=== PATIENT | male | born 1945 | race Caucasian/White ===

== ENCOUNTER 2017-03-30 18:08 | Observation (INO) ==
--- NOTE | 2017-03-30 20:13 | Internal Med History&Physical ---
Date of Encounter: 03/31/17 Time of Encounter: 20:07 Assessment and Plan (1) Atrial flutter Current visit: No Status: Acute Patient has history of atrial flutter, not on any treatment control medications for anticoagulation. Follows with Dr. Simeon with cardiology. Was started on Cardizem drip at [facility], converted back to sinus rhythm before the transfer. Currently heart rate at 70s and blood pressure 90s over 60s.(he says his BP normally stays at 90s/60s) Cardizem drip has been stopped. Will consult cardiology for further management. Continuous telemetry monitoring. Qualifiers: Atrial flutter type: unspecified Qualified Code(s): I48.92 - Unspecified atrial flutter (2) COPD (chronic obstructive pulmonary disease) Current visit: Yes Status: Acute Not in exacerbation. Will continue breathing treatments as required. Not on home oxygen. Qualifiers: COPD type: emphysema Emphysema type: unspecified Qualified Code(s): J43.9 - Emphysema, unspecified (3) Diabetes Current visit: Yes Status: Acute Monitor fingersticks. Insulin sliding scale Qualifiers: Qualified Code(s): E11.9 - Type 2 diabetes mellitus without complications (4) CAD (coronary artery disease) Current visit: No Status: Acute 06/05/16 , had LHC secondary to angina at rest and abnormal stress test. He is s/p successful PTCA/SUSANA to LCx; patent LAD stent; otherwise non-obstructive CAD. Will continue home medications. Qualifiers: Coronary Disease-Associated Artery/Lesion type: [place] artery [place] vs. transplanted heart: [place] heart Associated angina: without angina Qualified Code(s): I25.10 - Atherosclerotic heart disease of [place] coronary artery without angina pectoris Internal Medicine - H&P: HPI Chief complaint: flutter sensation Admitted From: Hospital to Hospital Transfer Plans for Post Hospital Care: Home History of present illness: Mr. Choi is a 71 year old male with PMH pf CAD, HTN, DM and COPD who presented at [place] for elevated heart rate. As per the note he was there at the emergency yesterday, he was given Cardizem bolus dose for A. fib RVR and the rate controlled and he was discharged home. He came back again due to high heart rate, he denies any chest pain but complains of mild chest discomfort, denies any shortness of breath cough or fever. Denies any nausea or vomiting. He recently was treated for pneumonia. He follows with Dr. Cailin David for cardiology and he has had multiple episodes of RVR which usually spontaneously converts back to NSR. As per the he is not on any anticoagulation. On 06/05/16, LHC was done with s/p successful PTCA/SUSANA to LCx; patent LAD stent; otherwise non- obstructive CAD. T [facility] he was started on Cardizem drip, he was eventually transferred to [place] because of uncontrolled heart rate on Cardizem drip and borderline blood pressure. Past Med Surg Social Fam HX - Past Medical History Medical history: COPD, coronary artery disease, diabetes, hyperlipidemia, hypertension Psychiatric history: no psych history - Past Surgical History Surgical History: angioplasty/stent, colostomy, LE stent(s) - Social History Smoking Status: Former smoker Smokeless Tobacco Status: No Alcohol use: none Drug use: none - Family History Father Living Status: Hx Family Neurologic Disorders: Yes (Dementia) Brother Hx Family Endocrine Disorder: Yes (Diabetes mellitus) Hx Family Neuromuscular Disorders: Yes (Parkinson's) Sister Adopted: No Age: 51 Family Member Ethnicity: Non- Living Status: Hx Family Cancer: Yes (breast) Son Living Status: Still Living Mother Adopted: No Living Status: Hx Family Endocrine Disorder: Yes (DM) Internal Medicine - H&P: Meds Aspirin Enteric Coated [Aspirin EC] 81 mg PO HS 06/08/15 [History] Cilostazol [Pletal] 100 mg PO BID 06/08/15 [History] Clopidogrel [Plavix] 75 mg PO DAILY 06/08/15 [History] Insulin Glargine,Hum.rec.anlog [Lantus Solostar] 35 unit SQ BID 06/08/15 [ History] Losartan [Cozaar] 25 mg PO HS 06/08/15 [History] Nitroglycerin [Nitrostat] 0.4 mg SL Q5M PRN 06/08/15 [History] Atorvastatin [Lipitor] 40 mg PO HS 06/05/16 [History] Cholecalciferol (D-3) [Vitamin D] 2,000 unit PO DAILY 06/05/16 [History] Gabapentin [Neurontin] 300 mg PO HS 06/05/16 [History] Metoprolol XL (24 HR) Succ [Toprol Xl] 12.5 mg PO DAILY 06/05/16 [History] SitaGLIPtin [Januvia] 100 mg PO DAILY 06/05/16 [History] Isosorbide MONOnitrate (24 HR) [Imdur] 15 mg PO DAILY tab.er.24h 03/16/17 [Rx] Ubidecarenone [Co Q-10] 100 mg PO DAILY 03/30/17 [History] Allergies No Known Allergies Allergy (Verified 06/08/15 19:42) All Systems PM: A 10-system review of systems was performed and is negative for pertinent findings except as documented above in the HPI. - Constitutional Constitutional: no chills, no fever(s), no night sweats - EENT Eyes: no change in vision, no discharge, no pain, no photophobia Ears: no ear discharge, no ear pain, no tinnitus Nose, mouth and throat: no dysphagia, no nasal discharge, no neck pain, no sore throat - Cardiovascular Cardiovascular ROS IM: no chest pain, no diaphoresis, no dyspnea, no lightheadedness, no palpitations, no syncope - Respiratory Respiratory: no cough, no dyspnea, no wheezing, no excessive phlegm production - Gastrointestinal Gastrointestinal: no abdominal pain, no diarrhea, no hematemesis, no hematochezia, no melena, no nausea, no vomiting - Musculoskeletal Musculoskeletal ROS IM: no numbness, no tingling - Integumentary Integumentary IM: no rash, no unusual bruising - Constitutional Vitals: Temp Pulse Resp BP Pulse Ox 98.2 F 76 16 99/56 99 03/30/17 19:38 03/30/17 19:38 03/30/17 19:38 03/30/17 19:38 03/30/17 19:38 General appearance: Present: A&O X 3, no acute distress Exam: Neck supple. Chest bilaterally clear, no added sounds. CVS S1 and S2, no murmurs rubs or gallops. Abdomen soft, nontender, bowel sounds are present. Extremities no edema. Neuro alert and awake, no focal neuro deficits.
[2017-03-30] MEDS ORDERED: Naloxone 0.4 MG/ML INJ IVP PRN (20:19)
[2017-03-30] MEDS: 0.9 % Sodium Chloride 1,000 ML IVC SCH (21:00)
[2017-03-30] MEDS ORDERED: Nitroglycerin 0.4 MG TAB.SUBL SL PRN (22:38)
[2017-03-30] MEDS ORDERED: Gabapentin 300 MG CAPSULE PO SCH (22:45)
[2017-03-30] MEDS ORDERED: Aspirin Enteric Coated 81 MG Tablet PO SCH (22:45)
[2017-03-31 06:34] LABS: Basophils % 0.2 %; Eosinophils # 0.1 K/mcL (0.0-0.6); Eosinophils % 1.1 %; Hematocrit 41.7 % (37.5-50.1); Hemoglobin 13.2 g/dL (12.9-16.9); Immature Granulocytes % 0.7 % (0-4); Lymphocytes # 1.9 K/mcL (0.6-4.6); Lymphocytes % 22.7 %; Mean Corpuscular HGB Conc 31.7 g/dL (31.6-35.5); Mean Corpuscular Hemoglobin 29.5 pg (28.0-33.3); Mean Corpuscular Volume 93.3 fL (83.0-100.0); Mean Platelet Volume 11.4 fL (9.4-12.4); Monocytes # 0.6 K/mcL (0.0-1.3); Monocytes % 7.7 %; Neutrophils # 5.5 K/mcL (1.6-8.9); Platelet Count 135 K/mcL (140-400); Red Blood Count 4.47 M/mcL (4.19-5.50); Red Cell Distribution Width 13.3 % (11.5-14.5); Segmented Neutrophils % 67.6 %
[2017-03-31 06:43] LABS: BUN/Creatinine Ratio 11 (6-26); Blood Urea Nitrogen 11 mg/dL (8-26); Calcium 7.9 mg/dL (8.6-10.8); Carbon Dioxide 20 mEq/L (19-29); Chloride 114 mEq/L (98-109); Chol/HDL Ratio 3.7 (0-4.9); Cholesterol 84 mg/dL (< 200); Glucose 101 mg/dL (70-99); HDL Cholesterol 23 mg/dL (40-59); LDL Cholesterol,Calculated 44 mg/dL (0-99); Magnesium 1.3 mg/dL (1.6-2.6); Osmolality,Calculated 286 (280-300); Sodium 138 mEq/L (136-145); Triglycerides 85 mg/dL (< 150); eGFR For African Americans > 60 (> 60); eGFR For Non-African Americans > 60 (> 60)
[2017-03-31] MEDS ORDERED: Magnesium Sulfate 2 GM in D5% in Water 100 ML IVPB ONE (07:12)
--- NOTE | 2017-03-31 08:57 | Cardiology Consult Note ---
<Linsey Hodges Rosario - Last Filed: 03/31/17 10:55> Date of Encounter: 03/31/17 Time of Encounter: 06:45 Assessment and Plan (1) SVT (supraventricular tachycardia) Current Visit: Yes Status: Acute SVT noted per ECG. Known hx of SVT. No evidence of aflutter/afib noted. Recommend increase betablocker to Toprol XL 25; will stop ARB to allow for increase in betablocker. Has been in SR since admission. Mag replaced, recommend Mag >2.0 and Potassium > 4.0 Recommend outpatient referral to EP for SVT ablation, will coordinate appt. No further recommendations as inpatient, Cardiology will sign-off. (2) CAD (coronary artery disease) Current Visit: Yes Status: Chronic Known hx of CAD s/p PCI. [facility] 06/05/16: s/p PTCA/SUSANA to mLCx; otherwise moderate non-obstructive CAD. Continue asa, statin, plavix, and betablocker. Qualifiers: Coronary Disease-Associated Artery/Lesion type: [place] artery [place] vs. transplanted heart: [place] heart Associated angina: without angina Qualified Code(s): I25.10 - Atherosclerotic heart disease of [place] coronary artery without angina pectoris Discussion w patient/family: The assessment and plan as outlined above was discussed with the patient and/or family members who expressed understanding and agreement. All questions were answered. Thank you for involving us in the care of your patient. Please call with any questions. The patient will be discussed and reviewed with Dr. Berger; changes to be made accordingly. History of Present Illness Consult date: 03/31/17 Requesting physician: Roly Karimi Consult reason: Atrial flutter Chief complaint: Palpitations History of present illness: Mr. Choi is a 71 year old male with PMHx significant for CAD s/p PCI, SVT, DMII , PVD, CKD-3, HLD and HTN who presented to the ED with worsening palpitations. Patient states intermittent episodes of palpitations over the past 6 weeks-- denies triggers or exacerbating symptoms. He states vagal maneuvers (as recommended per Dr. Simeon) as helped at times but not recently. Reports episodes typically occur at rest and resolve after a few minutes. Of note, patient was diagnosed with PNA x2 weeks ago. Upon arrival to ER, ECG demonstrated SVT. Past Med Surg Social Fam HX - Past Medical History Attestation: Yes The following information was validated with the patient. Source: patient Medical history: COPD, coronary artery disease, diabetes, hyperlipidemia, hypertension, SVT Psychiatric history: no psych history - Past Surgical History Surgical History: angioplasty/stent, colostomy, LE stent(s) - Social History Smoking Status: Former smoker Smokeless Tobacco Status: No Alcohol use: none Drug use: none - Family History Father Living Status: Hx Family Neurologic Disorders: Yes (Dementia) Brother Hx Family Endocrine Disorder: Yes (Diabetes mellitus) Hx Family Neuromuscular Disorders: Yes (Parkinson's) Sister Adopted: No Age: 51 Family Member Ethnicity: Non- Living Status: Hx Family Cancer: Yes (breast) Son Living Status: Still Living Mother Adopted: No Living Status: Hx Family Endocrine Disorder: Yes (DM) Medications and Allergies Aspirin Enteric Coated [Aspirin EC] 81 mg PO HS 06/08/15 [History] Cilostazol [Pletal] 100 mg PO BID 06/08/15 [History] Clopidogrel [Plavix] 75 mg PO DAILY 06/08/15 [History] Insulin Glargine,Hum.rec.anlog [Lantus Solostar] 35 unit SQ BID 06/08/15 [ History] Losartan [Cozaar] 25 mg PO HS 06/08/15 [History] Nitroglycerin [Nitrostat] 0.4 mg SL Q5M PRN 06/08/15 [History] Atorvastatin [Lipitor] 40 mg PO HS 06/05/16 [History] Cholecalciferol (D-3) [Vitamin D] 2,000 unit PO DAILY 06/05/16 [History] Gabapentin [Neurontin] 300 mg PO HS 06/05/16 [History] Metoprolol XL (24 HR) Succ [Toprol Xl] 12.5 mg PO DAILY 06/05/16 [History] SitaGLIPtin [Januvia] 100 mg PO DAILY 06/05/16 [History] Isosorbide MONOnitrate (24 HR) [Imdur] 15 mg PO DAILY tab.er.24h 03/16/17 [Rx] Ubidecarenone [Co Q-10] 100 mg PO DAILY 03/30/17 [History] Allergies No Known Allergies Allergy (Verified 06/08/15 19:42) All Systems Review: A 10-system review of systems was performed and is negative for pertinent findings except as documented above in the HPI. - Cardiovascular Cardiovascular: as per HPI Physical Examination Vital Signs, Last 4 Hours Temp Pulse Resp BP Pulse Ox 03/31/17 08:54 70 03/31/17 06:57 97.7 F 59 16 128/79 95 03/31/17 05:00 98.3 F 65 18 144/81 94 General: Conversant, No Apparent Distress HEENT: Atraumatic, Mucus Membranes Moist Cardiac: Reg Rate and Rhythm, Normal S1 and S2 Lungs: Normal Breath Sounds Neuro: Alert and responsive Abdomen: Soft Skin: No rashes noted on visualized skin Musculoskeletal: No Chest Wall Tenderness Extremities: No Edema, Normal Pulses Results 03/31/17 06:15 03/31/17 06:15 Lab Results 03/31/17 03/31/17 03/31/17 06:15 06:15 06:15 WBC 8.2 Hgb 13.2 D Hct 41.7 Plt Count 135 L Sodium 138 Potassium 4.0 Chloride 114 H Carbon Dioxide 20 BUN 11 Creatinine 0.99 Glucose 101 H Calcium 7.9 L Magnesium 1.3 L B-Natriuretic Peptide 349 H Active Medications Aspirin (Aspirin Ec) 81 mg PO HS [facility] Stop: 09/29/17 22:46 Last Admin: 03/30/17 23:12 Dose: 81 mg Cilostazol (Pletal) 100 mg PO BID MARISSA Stop: 09/30/17 09:01 Last Admin: 03/31/17 08:55 Dose: 100 mg Clopidogrel Bisulfate (Plavix) 75 mg PO DAILY MARISSA Stop: 09/29/17 22:46 Last Admin: 03/31/17 08:55 Dose: 75 mg Gabapentin (Neurontin) 300 mg PO HS MARISSA Stop: 09/29/17 22:46 Last Admin: 03/30/17 23:12 Dose: 300 mg Sodium Chloride (0.9 % Sodium Chloride) 1,000 mls @ 80 mls/hr IVC .[id number] MARISSA Stop: 09/29/17 20:31 Last Admin: 03/30/17 21:00 Dose: 80 mls/hr Insulin Detemir (Levemir) 35 unit SQ BID MARISSA Stop: 09/30/17 09:01 Last Admin: 03/31/17 08:55 Dose: 35 unit Isosorbide Mononitrate (Imdur) 15 mg PO DAILY MARISSA Stop: 09/30/17 09:01 Last Admin: 03/31/17 08:55 Dose: 15 mg Metoprolol Succinate (Toprol Xl) 25 mg PO DAILY MARISSA Stop: 09/30/17 09:01 Last Admin: 03/31/17 08:55 Dose: 25 mg Naloxone HCl (Narcan) 0.4 mg IVP Q2MIN PRN PRN Reason: Opioid Reversal Stop: 09/29/17 20:20 Nitroglycerin (Nitroglycerin) 0.4 mg SL Q5M PRN PRN Reason: Chest Pain Stop: 09/29/17 22:39 Simvastatin (Zocor) 40 mg PO HS [facility] Stop: 09/29/17 22:46 Last Admin: 03/30/17 23:12 Dose: 40 mg Vitamin D (Vitamin D) 1,000 unit PO DAILY MARISSA Stop: 09/30/17 09:01 Last Admin: 03/31/17 08:55 Dose: 1,000 unit - Imaging and Cardiology Cardiac cath: report reviewed Other Results: Telemetry: avg HR=[address] noted. - EKG Interpretation EKG results cardiology: personally reviewed Consult Discharge Plan - Plan Referrals: Albertina Coleman CNP [Primary Care Provider] - <Pearl Berger - Last Filed: 03/31/17 11:20> Date of Encounter: 03/31/17 Assessment and Plan Discussion w patient/family: The assessment and plan as outlined above was discussed with the patient and/or family members who expressed understanding and agreement. All questions were answered. Thank you for involving us in the care of your patient. Please call with any questions. History of Present Illness History of present illness: Mr. Choi is a 71 year old male All Systems Review: A 10-system review of systems was performed and is negative for pertinent findings except as documented above in the HPI. Physical Examination Vital Signs, Last 4 Hours Temp Pulse Resp BP Pulse Ox 03/31/17 10:47 97.6 F 65 16 129/70 95 03/31/17 08:54 70 Results 03/31/17 06:15 03/31/17 06:15 Lab Results 03/31/17 03/31/17 03/31/17 06:15 06:15 06:15 WBC 8.2 Hgb 13.2 D Hct 41.7 Plt Count 135 L Sodium 138 Potassium 4.0 Chloride 114 H Carbon Dioxide 20 BUN 11 Creatinine 0.99 Glucose 101 H Calcium 7.9 L Magnesium 1.3 L B-Natriuretic Peptide 349 H - Attending Attestation I examined this patient and my medical decision-making was reviewed with the CASE LOADER OPERATOR/PA/Advanced Practice Nurse/Resident Physician. I agree with the documented findings, disposition and treatment plan. Mr. Choi presents with palpitations. 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 He reports increased episodes recently. Recommend increasing Toprol. Will stop ARB to allow room for BP to uptitrate BB. Recommend EP consultation as outpatient for ablation. Otherwise, history of CAD on appropriate medication. Will sign off. Please call with questions.
[2017-03-31] MEDS ORDERED: Isosorbide MONOnitrate (24 HR) 30 MG TAB.ER.24H PO SCH (09:00)
[2017-03-31] MEDS ORDERED: Metoprolol XL (24 HR) Succ 25 MG TAB.ER.24H PO SCH ×2 (09:00)
[2017-03-31] MEDS ORDERED: Cholecalciferol (D-3) 1,000 UNIT TABLET PO SCH (09:00)
[2017-03-31] MEDS ORDERED: Insulin DETEMIR 100 UNIT/ML X5UNITS SQ SCH (09:00)
[2017-03-31 10:58] VITALS: BP 129/70
[2017-03-31] MEDS: 0.9 % Sodium Chloride 1,000 ML IVC SCH (11:07)
--- NOTE | 2017-03-31 12:13 | Discharge Summary ---
Date of Encounter: 03/31/17 Time of Encounter: 11:50 - Discharge Diagnosis (1) SVT (supraventricular tachycardia) Priority: Primary Status: Acute (2) COPD (chronic obstructive pulmonary disease) Priority: Secondary Status: Chronic Qualifiers: COPD type: emphysema Emphysema type: unspecified Qualified Code(s): J43.9 - Emphysema, unspecified (3) Diabetes Priority: Secondary Status: Chronic Qualifiers: Diabetes mellitus type: type 2 Diabetes mellitus complication status: without complication Diabetes mellitus fci insulin use: with fci use Qualified Code(s): E11.9 - Type 2 diabetes mellitus without complications ; Z79.4 - penitentiary (current) use of insulin (4) CAD (coronary artery disease) Priority: Secondary Status: Chronic Qualifiers: Coronary Disease-Associated Artery/Lesion type: [place] artery [place] vs. transplanted heart: [place] heart Associated angina: without angina Qualified Code(s): I25.10 - Atherosclerotic heart disease of [place] coronary artery without angina pectoris (5) Hypertension Priority: Secondary Status: Acute Qualifiers: Hypertension type: essential hypertension Qualified Code(s): I10 - Essential (primary) hypertension - Discharge Medications Prescriptions: Magnesium Oxide [Mag-Ox] 400 mg PO DAILY #30 tablet Metoprolol XL (24 HR) Succ [Toprol Xl] 25 mg PO DAILY #30 tab.er.24h Home Medications: Aspirin Enteric Coated [Aspirin EC] 81 mg PO HS 06/08/15 [History] Cilostazol [Pletal] 100 mg PO BID 06/08/15 [History] Clopidogrel [Plavix] 75 mg PO DAILY 06/08/15 [History] Insulin Glargine,Hum.rec.anlog [Lantus Solostar] 35 unit SQ BID 06/08/15 [ History] Losartan [Cozaar] 25 mg PO HS 06/08/15 [History] Nitroglycerin [Nitrostat] 0.4 mg SL Q5M PRN 06/08/15 [History] Atorvastatin [Lipitor] 40 mg PO HS 06/05/16 [History] Cholecalciferol (D-3) [Vitamin D] 2,000 unit PO DAILY 06/05/16 [History] Gabapentin [Neurontin] 300 mg PO HS 06/05/16 [History] SitaGLIPtin [Januvia] 100 mg PO DAILY 06/05/16 [History] Isosorbide MONOnitrate (24 HR) [Imdur] 15 mg PO DAILY tab.er.24h 03/16/17 [Rx] Ubidecarenone [Co Q-10] 100 mg PO DAILY 03/30/17 [History] Magnesium Oxide [Mag-Ox] 400 mg PO DAILY #30 tablet 03/31/17 [Rx] Metoprolol XL (24 HR) Succ [Toprol Xl] 25 mg PO DAILY #30 tab.er.24h 03/31/17 [ Rx] Allergies/Adverse Reactions: Allergies No Known Allergies Allergy (Verified 06/08/15 19:42) Date of admission: 03/30/17 19:24 Primary care physician: Albertina Coleman CNP Consults: 03/30/17 20:21 Consult to Cardiology [CONS] Routine Comment: Consulting Provider: Cardiology [place] Reason for Consult: please evaluate this patinet presenting with atrial flutter RVR who follows with dr. Simeon, thank you Call Completed: No Discharging clinician: Zen Veronica Anticipated date of discharge: 03/31/17 - Patient Status Disposition: Home, Self-Care Condition: Good Functional capacity at discharge: independent ambulation Overall status at discharge: patient is back to baseline - Discharge Instructions Follow Up With: Albertina Coleman CNP [Primary Care Provider] - Additional Instructions: May take 2 of your home metoprolol tomorrow if unable to oyster picker prescription for higher dose. Follow with Dr. Rafa Garibay as arranged. Follow with PCP in 1-2 weeks. - Diet and Activity Activity: increase activity as tolerated Diet: advance to your usual diet Hospital course: Mr. Choi is a 71 year old male with hx of CAD and DM transferred from [place] with presumptive a fib. He presented to ED with palpitations and was found to be tachycardic. He was treated and transferred here. By arrival time here he had converted to sinus rhythm. Mr. Choi was placed in observation on med TESARO. He had no issues with tachycardia. He was evaluated by cardiology and metoprolol was increased. His serum magnesium was low and replaced. Later in day on 03/31 he was afebrile with stable vitals. He was felt ready for discharge home. He is to follow up with Dr. Rafa Garibay as outpatient for possible ablation. - Time Spent with Patient Total time spent providing and/or coordinating discharge services: 28min - Constitutional Vitals: Temp Pulse Resp BP Pulse Ox 97.6 F 65 16 129/70 95 03/31/17 10:47 03/31/17 10:47 03/31/17 10:47 03/31/17 10:47 03/31/17 10:47 General appearance: Present: A&O X 3, pleasant, answers questions appropriately - Head Head exam: Present: normocephalic - Eye Eye exam: Present: EOMI, conjuntiva pink - ENT ENT exam: Present: mucous membranes moist - Respiratory Respiratory exam: Present: CTAB. Absent: rhonchi, wheezes - Cardiovascular Cardiovascular exam: Present: RRR. Absent: tachycardia - GI/Abdominal GI/Abdominal exam: Present: soft. Absent: tenderness - Extremities Exam Extremities exam: Present: warm. Absent: tenderness - Neurological Exam Neurological exam: Present: alert, oriented X3, no focal deficits - Psychiatric Psychiatric exam: Present: normal affect, normal mood - Skin Skin exam: Present: dry, warm. Absent: rash
[2017-03-31] MEDS ORDERED: Magnesium Oxide 400 MG TABLET PO STA (12:58)
== END 2017-03-31 14:03 | disposition home or self-care (01) ==
LOC: 2ANU
PROVIDERS: ADMIT Internal Medicine; ATTEND Internal Medicine

== ENCOUNTER 2019-07-08 13:13 | Observation (INO) ==
[2019-07-08 14:26] LABS: Basophils % 0.2 %; Hematocrit 51.3 % (37.5-50.1); Hemoglobin 17.1 g/dL (12.9-16.9); Immature Granulocytes % 0.7 % (0-4); Lymphocytes # 1.6 K/mcL (0.6-4.6); Mean Corpuscular HGB Conc 33.3 g/dL (31.6-35.5); Mean Corpuscular Hemoglobin 31.3 pg (28.0-33.3); Mean Corpuscular Volume 93.8 fL (83.0-100.0); Mean Platelet Volume 11.6 fL (9.4-12.4); Monocytes # 0.6 K/mcL (0.0-1.3); Monocytes % 3.6 %; Neutrophils # 15.1 K/mcL (1.6-8.9); Platelet Count 175 K/mcL (140-400); Red Blood Count 5.47 M/mcL (4.19-5.50); Red Cell Distribution Width 12.9 % (11.5-14.5); Segmented Neutrophils % 86.5 %; White Blood Count 17.4 K/mcL (4.3-11.1)
[2019-07-08] MEDS ORDERED: Isovue-370 500 ML BOTTLE IVP ONE (14:40)
[2019-07-08 14:56] LABS: BUN/Creatinine Ratio 13 (6-26); Blood Urea Nitrogen 13 mg/dL (8-23); Calcium 10.3 mg/dL (8.6-10.3); Carbon Dioxide 25 mEq/L (23-29); Chloride 99 mEq/L (98-107); Glucose 299 mg/dL (70-105); Osmolality,Calculated 289 (280-300); Potassium 4.6 mEq/L (3.5-5.1); Sodium 134 mEq/L (136-145); Troponin I < 0.03 ng/mL (< 0.04); eGFR For African Americans > 60 (> 60); eGFR For Non-African Americans > 60 (> 60)
[2019-07-08] MEDS ORDERED: GI Cocktail 40 ML EACH PO ONE (17:19)
[2019-07-08] MEDS ORDERED: Acetaminophen 325 MG TABLET PO PRN (20:00)
[2019-07-08] MEDS ORDERED: Naloxone 0.4 MG/ML INJ IVP PRN (20:00)
[2019-07-08] MEDS ORDERED: Ondansetron ODT 4 MG TAB.RAPDIS SL PRN (20:00)
[2019-07-08] MEDS ORDERED: D5% in Water 1,000 ML IVC PRN (20:03)
[2019-07-08] MEDS ORDERED: *HR* Dextrose 50 % in Water (Syg) 50 ML SYRINGE IVP PRN (20:03)
[2019-07-08] MEDS ORDERED: Dextrose Gel 15 GM/37.5 ML TUBE PO PRN ×2 (20:03)
[2019-07-08] MEDS ORDERED: Insulin LISPRO 300 UNITS/3 ML VIAL SQ SCH (21:00)
[2019-07-08] MEDS: Aspirin Enteric Coated 81 MG Tablet PO SCH (23:23)
[2019-07-09] MEDS: Insulin LISPRO 300 UNITS/3 ML VIAL SQ SCH ×4 (00:23→17:15)
[2019-07-09 02:47] LABS: Mean Corpuscular HGB Conc 32.4 g/dL (31.6-35.5); Mean Corpuscular Hemoglobin 30.2 pg (28.0-33.3); Mean Corpuscular Volume 93.1 fL (83.0-100.0); Mean Platelet Volume 11.4 fL (9.4-12.4); Platelet Count 177 K/mcL (140-400); Red Blood Count 4.94 M/mcL (4.19-5.50); Red Cell Distribution Width 13.2 % (11.5-14.5); White Blood Count 13.9 K/mcL (4.3-11.1)
[2019-07-09 02:48] LABS: Basophils % 0.2 %; Eosinophils # 0.1 K/mcL (0.0-0.6); Eosinophils % 0.4 %; Immature Granulocytes % 0.6 % (0-4); Lymphocytes # 2.7 K/mcL (0.6-4.6); Lymphocytes % 19.7 %; Monocytes % 7.1 %
[2019-07-09 03:01] LABS: Hemoglobin 14.9 g/dL (12.9-16.9)
[2019-07-09 03:06] LABS: Calcium 9.1 mg/dL (8.6-10.3); Magnesium 1.8 mg/dL (1.6-2.6); Potassium 3.9 mEq/L (3.5-5.1)
[2019-07-09] MEDS: *HR* Enoxaparin 40 MG/0.4 ML SYRINGE SQ SCH (05:57)
[2019-07-09] MEDS ORDERED: Insulin LISPRO 300 UNITS/3 ML VIAL SQ SCH (07:30)
[2019-07-09] MEDS ORDERED: Metoprolol XL (24 HR) Succ 25 MG TAB.ER.24H PO SCH (09:00)
[2019-07-09 09:06] LABS: Acinetobacter baumannii by PCR Not Detected (Not Detect); Candida albicans by PCR Not Detected (Not Detect); Candida glabrata by PCR Not Detected (Not Detect); Candida krusei by PCR Not Detected (Not Detect); Candida parapsilosis by PCR Not Detected (Not Detect); Candida tropicalis by PCR Not Detected (Not Detect); Enterobacter cloacae Cmplx PCR Not Detected (Not Detect); Enterobacteriaceae by PCR Not Detected (Not Detect); Enterococcus by PCR Not Detected (Not Detect); Escherichia coli by PCR Not Detected (Not Detect); Klebsiella oxytoca by PCR Not Detected (Not Detect); Klebsiella pneumoniae by PCR Not Detected (Not Detect); Proteus by PCR Not Detected (Not Detect); Pseudomonas aeruginosa by PCR Not Detected (Not Detect); Serratia marcescens by PCR Not Detected (Not Detect); Staphylococcus aureus by PCR Not Detected (Not Detect); Staphylococcus by PCR Not Detected (Not Detect); Streptococcus agalactiae(B)PCR Not Detected (Not Detect); Streptococcus by PCR Not Detected (Not Detect); Streptococcus pneumoniae PCR Not Detected (Not Detect); Streptococcus pyogenes (A) PCR Not Detected (Not Detect)
[2019-07-09] MEDS: Multivit/Ca/Min/Fe/FA 1 TAB TABLET PO SCH (09:39)
[2019-07-09] MEDS: Cholecalciferol (D-3) 1,000 UNIT (25MCG) TABLET PO SCH (09:39)
[2019-07-09] MEDS ORDERED: Perflutren Lipid Microsphere 1.3 ML in 0.9 % Sodium Chloride 8.7 ML IVP ONE (13:24)
[2019-07-09] MEDS: Aspirin Enteric Coated 81 MG Tablet PO SCH (21:00)
[2019-07-10] MEDS: Insulin LISPRO 300 UNITS/3 ML VIAL SQ SCH ×3 (00:36→12:09)
[2019-07-10 04:28] LABS: Basophils # 0.1 K/mcL (0.0-0.2); Basophils % 0.4 %; Eosinophils # 0.1 K/mcL (0.0-0.6); Eosinophils % 1.1 %; Hematocrit 44.3 % (37.5-50.1); Hemoglobin 14.3 g/dL (12.9-16.9); Immature Granulocytes % 1.1 % (0-4); Lymphocytes # 2.9 K/mcL (0.6-4.6); Lymphocytes % 25.6 %; Mean Corpuscular HGB Conc 32.3 g/dL (31.6-35.5); Mean Corpuscular Hemoglobin 30.5 pg (28.0-33.3); Mean Corpuscular Volume 94.5 fL (83.0-100.0); Mean Platelet Volume 11.5 fL (9.4-12.4); Monocytes # 0.9 K/mcL (0.0-1.3); Monocytes % 8.1 %; Neutrophils # 7.2 K/mcL (1.6-8.9); Platelet Count 160 K/mcL (140-400); Red Blood Count 4.69 M/mcL (4.19-5.50); Red Cell Distribution Width 13.2 % (11.5-14.5); Segmented Neutrophils % 63.7 %; White Blood Count 11.3 K/mcL (4.3-11.1)
[2019-07-10 04:44] LABS: BUN/Creatinine Ratio 17 (6-26); Blood Urea Nitrogen 21 mg/dL (8-23); Calcium 8.5 mg/dL (8.6-10.3); Carbon Dioxide 23 mEq/L (23-29); Chloride 105 mEq/L (98-107); Glucose 139 mg/dL (70-105); Osmolality,Calculated 287 (280-300); Sodium 136 mEq/L (136-145); eGFR For African Americans > 60 (> 60); eGFR For Non-African Americans 56 (> 60)
[2019-07-10] MEDS ORDERED: INSULIN DEGLUDEC 80 UNIT SQ SCH (09:00)
[2019-07-10] MEDS ORDERED: Metoprolol XL (24 HR) Succ 25 MG TAB.ER.24H PO SCH (09:00)
[2019-07-10] MEDS ORDERED: Insulin DETEMIR 100 UNIT/ML X5UNITS SQ SCH (09:00)
[2019-07-10] MEDS: Cholecalciferol (D-3) 1,000 UNIT (25MCG) TABLET PO SCH (09:04)
[2019-07-10] MEDS: Multivit/Ca/Min/Fe/FA 1 TAB TABLET PO SCH (09:05)
[2019-07-10] MEDS: *HR* Enoxaparin 40 MG/0.4 ML SYRINGE SQ SCH (09:05)
[2019-07-10 10:42] VITALS: BP 98/63
[2019-07-10 11:02] LABS: Bilirubin,Urine Negative (Negative); Blood,Urine Negative (Negative); Clarity,Urine Clear (Clear); Color,Urine Yellow (Yellow); Glucose,Urine (UA) 100 mg/dL (Normal); Ketones,Urine Negative (Negative); Leukocyte Esterase,Urine Negative (Negative); Nitrite,Urine Negative (Negative); PH,Urine 5.5 pH Units (5.0-8.0); Protein,Urine Negative (Neg-Trace); Specific Gravity,Urine 1.015 (1.010-1.025); Urobilinogen,Urine Normal (Normal)
[2019-07-10] MEDS ORDERED: rOPINIRole 0.25 MG TABLET PO SCH (21:00)
== END 2019-07-10 14:36 | disposition home or self-care (01) ==
LOC: 3BNU 13:13 → EMEROOARM 13:13 → SUATTDRO 17:30 → 3BNU 18:18
PROVIDERS: ADMIT Internal Medicine; ATTEND Nurse Practitioner Acute Care